=== PATIENT | female | born 1975 | race African-American/Black ===

== ENCOUNTER 2020-09-15 09:42 | Outpatient (RCR) | payer MEDICAID ==
[~2020-09-15] VITALS: Ht 154.9 cm; Wt 82.0 kg
[2020-09-15] VITALS (9 sets, daily range): BP systolic 104–132; BP diastolic 71–94; PULSE 72–88; TEMP 98.1–98.8
[2020-09-15 10:08] LABS: BASO % 0.4 % (0.0-2.0); EOS # 0.2 (0.0-0.7); EOS % 3.6 % (0-4.0); GRAN # 2.3 (1.4-6.5); GRAN % 50.4 % (42.2-75.2); LYMPH # 1.6 (1.2-3.4); MEAN CELL VOLUME 81 fl (80.0-100.0); MEAN CORPUSCULAR HGB CONC 30 g/dl (33.0-37.0); MONO # 0.4 (0.1-0.6); MONO % 9.4 % (1.7-9.3); PLATELET COUNT 303 K/mm3 (130-400); RED BLOOD COUNT 3.19 M/mm3 (4.10-5.30); REDCELL DISTRIBUTION WIDTH-CV 19.9 % (11.5-14.5)
[2020-09-15 10:09] LABS: HEMATOCRIT 25.7 % (37.0-47.0); HEMOGLOBIN 7.8 g/dl (12.5-16.0); MEAN CORPUSCULAR HEMOGLOBIN 24 pg (27.0-31.0)
[2020-09-15] MEDS ORDERED: LYSTEDA650 MG PO (10:52)
[2020-09-17] MEDS ORDERED: PERCOCET 325 MG1 TA2 PO (08:48)
[2020-09-17] MEDS ORDERED: IBU600 MG PO (08:48)
== END 2020-12-14 | disposition home or self-care (01) ==
LOC: EUO
PROVIDERS: Obstetrics & Gynecology
DX: Z01.818 Encounter for other preprocedural examination (principal); N92.0 Excessive and frequent menstruation with regular cycle; N94.5 Secondary dysmenorrhea; D50.0 Iron deficiency anemia secondary to blood loss (chronic); D25.0 Submucous leiomyoma of uterus
CPT/HCPCS: J7050; P9016

== ENCOUNTER 2020-09-16 05:32 | Day surgery (SDC) | payer MEDICAID ==
[2020-09-16] VITALS (12 sets, daily range): BP systolic 108–134; BP diastolic 68–88; PULSE 55–88; TEMP 97.6–98.7
[~2020-09-16] VITALS: Ht 154.9 cm; Wt 82.3 kg
[~2020-09-16 05:32] MED LIST: LYSTEDA650 MG PO
--- NOTE | 2020-09-16 18:35 | NUR ---
PATIENT WITH LOW OUTPUT VIA REYES FIRST COUPLE HOURS AFTER BEING BROUGHT TO LABOR UNIT. 70 MLS IN 4 HOURS. DOCTOR HAD 500CC LR BOLUS BE GIVEN AT 1200 AND 500CC LR BOLUS 1400. PATIENT ENDED UP HAVING A TOTAL OF 770 OUT VIA REYES BY THE TIME IT WAS DISCONTINUED AT 1745. NO SYMPTOMS WERE EVER PRESENT AND BLADDER WAS NOT DISTENDED.
[2020-09-17 04:10] VITALS: BP 136/74; PULSE 67; TEMP 98.4
[2020-09-17 06:23] LABS: BASO % 0.2 % (0.0-2.0); EOS % 0.1 % (0-4.0); GRAN % 78.6 % (42.2-75.2); LYMPH # 1.4 (1.2-3.4); LYMPH % 12.3 % (20.0-51.0); MEAN CELL VOLUME 82 fl (80.0-100.0); MEAN CORPUSCULAR HGB CONC 32 g/dl (33.0-37.0); MEAN PLATELET VOLUME 10.7 fl (7.4-10.4); MONO % 8.3 % (1.7-9.3); PLATELET COUNT 238 K/mm3 (130-400); RED BLOOD COUNT 3.64 M/mm3 (4.10-5.30); REDCELL DISTRIBUTION WIDTH-CV 19.3 % (11.5-14.5)
[2020-09-17 06:26] LABS: HEMOGLOBIN 9.5 g/dl (12.5-16.0); MEAN CORPUSCULAR HEMOGLOBIN 26 pg (27.0-31.0)
--- NOTE | 2020-09-17 06:32 | NUR ---
BEDSIDE REPORT DECLINED. REPORT RECEIVED FROM OFF GOING RN, CHRISTOFER Wilkerson. CARE TAKEN OVER BY THIS RN.
[2020-09-17 07:51] VITALS: BP 117/74; PULSE 74; TEMP 98
[2020-09-17] MEDS ORDERED: PERCOCET 325 MG1 TA2 PO (08:48)
[2020-09-17] MEDS ORDERED: IBU600 MG PO (08:48)
--- NOTE | 2020-09-17 09:13 | NUR ---
Initial visit; Patient thanked Telegraphic Instrument Supervisor for offering God's blessings and well wishes for a thorough and rapid recovery.
== END 2020-09-17 13:05 | disposition home or self-care (01) ==
LOC: OB 05:32 → SDCO 05:32 → OB 08:47 → SDCO 09-17 13:05
PROVIDERS: Obstetrics & Gynecology
DX: N92.0 Excessive and frequent menstruation with regular cycle (principal); D25.1 Intramural leiomyoma of uterus; D25.2 Subserosal leiomyoma of uterus; N83.8 Other noninflammatory disorders of ovary, fallopian tube and broad ligament; F41.9 Anxiety disorder, unspecified; D50.0 Iron deficiency anemia secondary to blood loss (chronic); N94.6 Dysmenorrhea, unspecified; Z20.822 Contact with and (suspected) exposure to COVID-19; Z91.048 Other nonmedicinal substance allergy status; Z79.899 Other long term (current) drug therapy; Z82.49 Family history of ischemic heart disease and other diseases of the circulatory system
CPT/HCPCS: OP; A4314; A9284; J0690; J1100; J1885; J2405; J2550; J2704; J2710; J3010; J7120